=== PATIENT | male | born 1970 | race Caucasian/White ===

== ENCOUNTER 2017-01-01 18:20 | Inpatient (IN) | payer BC ==
[~2017-01-01] VITALS: Ht 190.5 cm; Wt 123.5 kg
--- NOTE | 2017-01-01 18:28 | ED.ADGEN ---
Past History Past Medical History: Hypertension, Other Past Surgical History: Other Smoking: Cigarettes Alcohol Use: Occasionally Adult General Chief Complaint Chief Complaint " I been having chest pain and discomfort.... the past week off and on... but more constant tonight.. I have high blood pressure and I do smoke.. but people start having KS in my family at age 40 to 50..." HPI HPI Patient is a 46 year old male who presents with above hx and complaints of chest discomfort. Patient states chest pain is central describe as an ache. Pt. has hx of HTN with poor control. No history of prior cardiac problems. Patient does smoke. Patient does drink daily. Patient denies any trauma. Patient denies any travel. Patient has had a recent cough and upper respiratory infection. Pt. follows with Dr. Griffin. Review of Systems Review of Systems Constitutional: Denies fever or chills [] Eyes: Denies change in visual acuity, redness, or eye pain [] HENT: Denies nasal congestion or sore throat [] Respiratory: Denies cough or shortness of breath [] Cardiovascular: No additional information not addressed in HPI [] GI: Denies abdominal pain, nausea, vomiting, bloody stools or diarrhea [] : Denies dysuria or hematuria [] Musculoskeletal: Denies back pain or joint pain [] Integument: Denies rash or skin lesions [] Neurologic: Denies headache, focal weakness or sensory changes [] Endocrine: Denies polyuria or polydipsia [] Family History Family History Neck disease developing at age 40 Current Medications Current Medications Current Medications Medications (Trade) Dose Ordered Sig/Adan Start Time Stop Time Status Last Admin Dose Admin Aspirin 325 mg 325 mg 1X ONCE 01/01/17 19:15 01/01/17 19:16 DC 01/01/17 19:49 325 MG Benzocaine (Hurricaine One) 1 spray 1X ONCE 01/01/17 20:45 01/01/17 20:46 DC Clonidine HCl (Catapres) 0.2 mg 1X ONCE 01/01/17 20:45 01/01/17 20:46 DC 01/01/17 20:30 0.1 MG Enoxaparin Sodium (Lovenox 100mg Syringe) 100 mg 1X ONCE 01/01/17 19:30 01/01/17 19:31 DC 01/01/17 19:48 100 MG Lactated Ringer's (Iv Lactated Ringers) 1,000 ml @ 1,000 mls/hr Q1H 01/01/17 19:00 01/01/17 19:48 1,000 MLS/HR Lorazepam (Ativan) 2 mg PRN 1X PRN 01/01/17 21:30 Nitroglycerin (Nitro-Bid Oint) 1 inch 1X ONCE 01/01/17 19:30 01/01/17 19:31 DC 01/01/17 19:50 1 INCH Ondansetron HCl (Zofran) 4 mg PRN Q4HRS PRN 01/01/17 21:30 01/02/17 21:29 Phenylephrine HCl (Telly-Synephrine 1% Nasal) 2 drop 1X ONCE 01/01/17 20:45 01/01/17 20:46 DC Allergies Allergies Allergies Coded Allergies Type Severity Reaction Last Updated Verified No Known Drug Allergies 01/01/17 No Physical Exam Physical Exam Constitutional: Mild to moderate distress, non-toxic appearance. [] HENT: Normocephalic, atraumatic, bilateral external ears normal, oropharynx moist, no oral exudates, nose normal. Poor dentition Eyes: PERRLA, EOMI, conjunctiva normal, no discharge. [] Neck: Normal range of motion, no tenderness, supple, no stridor. Neck size more than 17 inches circumference Cardiovascular:Heart rate regular rhythm, no murmur, PMI to the left Lungs & Thorax: Bilateral breath sounds equal at apexes with scattered wheezing on auscultation [] Abdomen: Bowel sounds normal, soft, no tenderness, no masses, no pulsatile masses. Obese Skin: Warm, dry, no erythema, no rash. [] Back: No tenderness, no CVA tenderness. [] Extremities: No tenderness, no cyanosis, no clubbing, ROM intact, no edema. [] No cording noted. Neurologic: Alert and oriented X 3, normal motor function, normal sensory function, no focal deficits noted. Psychologic: Affect anxious, judgement normal, mood normal. [] Current Patient Data Vital Signs Vital Signs Date Time Temp Pulse Resp B/P Pulse Ox O2 Delivery O2 Flow Rate FiO2 01/01/17 20:30 77 169/73 01/01/17 18:20 99.0 18 93 Room Air Lab Results Laboratory Tests Test 01/01/17 18:10 01/01/17 18:40 White Blood Count 9.1x10^3/uL (4.0-11.0) Red Blood Count 5.48x10^6/uL (4.30-5.70) Hemoglobin 17.0g/dL (13.0-17.5) Hematocrit 49.2% (39.0-53.0) Mean Corpuscular Volume 90fL (79-100) Mean Corpuscular Hemoglobin 31pg (25-35) Mean Corpuscular Hemoglobin Concent 35g/dL (31-37) Red Cell Distribution Width 13.4% (11.5-14.5) Platelet Count 167x10^3/uL (140-400) Neutrophils (%) (Auto) 67% (31-73) Lymphocytes (%) (Auto) 24% (24-48) Monocytes (%) (Auto) 8% (0-9) Eosinophils (%) (Auto) 1% (0-3) Basophils (%) (Auto) 1% (0-3) Neutrophils # (Auto) 6.1x10^3uL (1.8-7.7) Lymphocytes # (Auto) 2.2x10^3/uL (1.0-4.8) Monocytes # (Auto) 0.7x10^3/uL (0.0-1.1) Eosinophils # (Auto) 0.0x10^3/uL (0.0-0.7) Basophils # (Auto) 0.1x10^3/uL (0.0-0.2) Prothrombin Time 10.1SEC (9.4-11.4) Prothrombin Time INR 1.0 (0.9-1.1) PTT 26SEC (23-33) D-Dimer (Nilsa) 0.45mg/L (0.00-0.50) Urine Collection Type Unknown Urine Color Straw Urine Clarity Clear Urine pH 6.5 Urine Specific [place] 1.010 Urine Protein Neg (NEG-TRACE) Urine Glucose (UA) Negmg/dL (NEG) Urine Ketones (Stick) Negmg/dL (NEG) Urine Blood Neg (NEG) Urine Nitrite Neg (NEG) Urine Bilirubin Neg (NEG) Urine Urobilinogen Dipstick 0.2mg/dL (0.2 mg/dL) Urine Leukocyte Esterase Neg (NEG) Urine RBC 0/HPF (0-2) Urine WBC 0/HPF (0-4) Urine Squamous Epithelial Cells None/LPF Urine Bacteria 0/HPF (0-FEW) Sodium Level 139mmol/L (136-145) Potassium Level 3.6mmol/L (3.5-5.1) Chloride Level 99mmol/L (98-107) Carbon Dioxide Level 32mmol/L (21-32) Anion Gap 8 (6-14) Blood Urea Nitrogen 10mg/dL (8-26) Creatinine 1.0mg/dL (0.7-1.3) Estimated GFR (Cockcroft-Gault) 80.4 Glucose Level 119mg/dL (70-99) H Calcium Level 9.4mg/dL (8.5-10.1) Magnesium Level 2.1mg/dL (1.8-2.4) Total Bilirubin 0.7mg/dL (0.2-1.0) Direct Bilirubin 0.2mg/dL (0.0-0.2) Aspartate Amino Transferase (AST) 27U/L (15-37) Alanine Aminotransferase (ALT) 67U/L (16-63) H Alkaline Phosphatase 90U/L (46-116) Creatine Kinase 222U/L (39-308) Creatine Kinase MB (Mass) 1.6ng/mL (0.0-3.6) Creatine Kinase MB Relative Index 0.7% (0-4) Troponin I Quantitative < 0.017ng/mL (0-0.055) GV-Lzg-A-Type Natriuretic Peptide 181pg/mL (0-124) H Total Protein 8.1g/dL (6.4-8.2) Albumin 4.4g/dL (3.4-5.0) Lipase 157U/L (73-393) Urine Opiates Screen Neg (NEG) Urine Methadone Screen Neg (NEG) Urine Barbiturates Neg (NEG) Urine Phencyclidine Screen Neg (NEG) Urine Amphetamine/Methamphetamine Neg (NEG) Urine Benzodiazepines Screen Neg (NEG) Urine Cocaine Screen Neg (NEG) Urine Cannabinoids Screen Neg (NEG) Urine Ethyl Alcohol Neg (NEG) Ethyl Alcohol Level < 10mg/dL (0-10) EKG EKG I interpretation EKG shows a sinus rhythm at 69 bpm. There is some bimodal P- wave's on the left leads. Left axis deviation. Some nonspecific anterior lateral changes. But no findings acute STEMI with contralateral changes at this time. [] Radiology/Procedures Radiology/Procedures I interpretation of chest x-ray shows borderline cardiomegaly. Some chronic findings consistent with mild COPD. [] Course & Med Decision Making Course & Med Decision Making Pertinent Labs and Imaging studies reviewed. (See chart for details) Patient did develop nosebleed in the emergency room after blowing his nose. Will hold further Lovenox at this time. Discussed presentation, testing and treatment with . Will admit for further evaluation and cardiology consult Dr. Lopes [] Final Impression Final Impression 1. Chest pain 2. Hypertension -accelerated hypertension 3. Tobacco use 4. Daily alcohol use [] Problems: Dragon Disclaimer Dragon Disclaimer This electronic medical record was generated, in whole or in part, using a voice recognition dictation system. ESTUARDO GARCIA MD Jan 01, 2017 18:28
[2017-01-01] MEDS ORDERED: ASPIRIN 325 MG TABLET PO ONE (19:15)
[2017-01-01 19:23] LABS: BASO # 0.1 x10^3/uL (0.0-0.2); BASO % 1 % (0-3); EOS % 1 % (0-3); HEMATOCRIT 49.2 % (39.0-53.0); LYMPH # 2.2 x10^3/uL (1.0-4.8); LYMPH % 24 % (24-48); MEAN CORPUSCULAR HEMOGLOBIN 31 pg (25-35); MEAN CORPUSCULAR HGB CONC 35 g/dL (31-37); MEAN CORPUSCULAR VOLUME 90 fL (79-100); MONO # 0.7 x10^3/uL (0.0-1.1); MONO % 8 % (0-9); NEUT # 6.1 x10^3uL (1.8-7.7); NEUT % 67 % (31-73); PLATELET COUNT 167 x10^3/uL (140-400); RED BLOOD COUNT 5.48 x10^6/uL (4.30-5.70); RED CELL DISTRIBUTION WIDTH 13.4 % (11.5-14.5); WHITE BLOOD COUNT 9.1 x10^3/uL (4.0-11.0)
[2017-01-01 19:30] LABS: BILIRUBIN,URINE NEG (NEG); CLARITY,URINE CLEAR; COLOR,URINE STRAW; GLUCOSE,URINE NEG (NEG)
[2017-01-01] MEDS ORDERED: ENOXAPARIN ** NOTE DOSE ** SYRINGE SQ ONE (19:30)
[2017-01-01] MEDS ORDERED: NITROGLYCERIN OINT 1 GM PACKET. TP ONE (19:30)
[2017-01-01 19:31] LABS: BACTERIA,URINE 0 /HPF (0-FEW); NITRITE,URINE NEG (NEG); RBC,URINE 0 /HPF (0-2); UROBILINOGEN,URINE 0.2 mg/dL (0.2 mg/dL); WBC,URINE 0 /HPF (0-4)
[2017-01-01 19:38] LABS: AMPHETAMINE/METHAMPHETAMINE NEG (NEG); BARBITURATES NEG (NEG); BENZODIAZEPINES NEG (NEG); CANNABINOIDS NEG (NEG); COCAINE NEG (NEG); METHADONE NEG (NEG); OPIATES NEG (NEG); PHENCYCLIDINE NEG (NEG)
[2017-01-01 19:47] LABS: ALBUMIN 4.4 g/dL (3.4-5.0); CALCIUM 9.4 mg/dL (8.5-10.1); DIRECT BILIRUBIN 0.2 mg/dL (0.0-0.2); GFR 80.4; MAGNESIUM 2.1 mg/dL (1.8-2.4); POTASSIUM 3.6 mmol/L (3.5-5.1); TOTAL BILIRUBIN 0.7 mg/dL (0.2-1.0); TOTAL PROTEIN 8.1 g/dL (6.4-8.2)
[2017-01-01] MEDS: IV RINGERS SOLUTION,LACTATED 1,000 ML IV SCH (19:48)
[2017-01-01] MEDS ORDERED: BENZOCAINE ONE 20% MUCOSAL SPRAY. MM (20:45)
[2017-01-01] MEDS ORDERED: PHENYLEPHRINE 1% NASAL DROP 30ML BOTTLE. NS ONE (20:45)
[2017-01-01] MEDS ORDERED: ONDANSETRON PF 4 MG/2 ML VIAL. IV ONE ×2 (20:45)
[2017-01-01] MEDS ORDERED: CLONIDINE HCL 0.1 MG TABLET PO ONE (20:45)
[2017-01-01] MEDS ORDERED: ONDANSETRON PF 4 MG/2 ML VIAL. IV PRN (21:30)
[2017-01-01] MEDS ORDERED: LORAZEPAM 2 MG/ML VIAL IV PRN (21:30)
[2017-01-01] MEDS ORDERED: MORPHINE SULFATE 10 MG/ML SYRINGE. SQ ONE ×2 (21:45→22:15)
[2017-01-01] MEDS: MVI, ADULT NO.4 WITH VIT K 10 ML, FOLIC ACID 1 MG, THIAMINE 100 MG in IV DEXTROSE 5%-LA... IV SCH ×4 (22:00)
--- NOTE | 2017-01-01 23:30 | NUR ---
At 2315, Pt admitted via EMS from ER for CP. Pt presents A&OX3, pleasant and cooperative. Pt states chest pain has improved but states it's still there "a little bit" rates 2/10, pt states he doesn't want anything for the pain. A full complete assessment and history completed at this time. Pt oriented to unit, nurse, call light and plan of care. V/u stated. Call light in reach. Pt hungry, given a sandwich at this time. Pt denies any questions or complaints. Will monitor pt closely. Pt requesting something to help him relax and sleep, will address.
[2017-01-01 23:36] VITALS: BP 177/82
[2017-01-01] MEDS: LORAZEPAM 1 MG TABLET. PO SCH (23:45)
[2017-01-02] VITALS (7 sets, daily range): BP systolic 113–178; BP diastolic 51–81
--- NOTE | 2017-01-02 02:21 | ACF ---
Admission Criteria Forms GENERAL ADMISSION CRITERIA (Place 'X' for any and all applicable criteria): Admission is indicated for ANY ONE of the following: [ ]I. Hemodynamic instability as indicated by ANY ONE of the following(1)(2) (3)(4)(5): [ ]a) Vital sign abnormality not readily corrected by appropriate treatment within 12 to 24 hours indicated by ANY ONE of the following: [ ]i) Hypotension [ ]ii) Symptomatic Tachycardia unresponsive to treatment (eg , analgesia, fluids, sedation as indicated) [ ]iii) Orthostatic vital sign changes unresponsive to treatment (eg, fluids) [ ]b) Vital sign abnormality that is severe indicated by ANY ONE of the following: [ ]i) Inadequate perfusion indicated by ANY ONE of the following: [ ]1) Lactic acidosis (greater than 2 mmol/L) [ ]2) New abnormal capillary refill (greater than 3 seconds) [ ]3) Other metabolic acidosis (arterial pH less than 7.35) not otherwise explained [ ]4) Reduced urine output [ ]5) Altered mental status [ ]6) Myocardial Ischemia [ ]v) Mean arterial pressure[A] less than 60 mm Hg [ ]vi) Mean arterial pressure[A] less than 70 mm Hg after 30 minutes of appropriate treatment (eg, fluid resuscitation) [ ]vii) IV inotropic or vasopressor medication required to maintain adequate blood pressure or perfusion [ ]viii) Sustained heart rate greater than 120 beats per minute in adult or child 6 years or older[B]] [ ]II. Hypertension requiring inpatient treatment as indicated by ANY ONE of the following(6)(7)(8): [ ]a) SBP greater than 220 mm Hg or DBP greater than 120 mm Hg despite treatment [ ]b) SBP greater than 140 mm Hg or DBP greater than 100 mm Hg with evidence of acute end organ damage as indicated by ANY ONE of the following: [ ]i) Encephalopathy [ ]ii) Acute renal failure as indicated by new onset of ANY ONE of the following(9)(10)(11)(12)(13): [ ]1) A 3-fold rise in serum creatinine from baseline [ ]2) Serum creatinine greater than 4 mg/dL ( 354 micromoles/L) with acute rise greater than 0.5 mg/dL (44.2 micromoles/L) [ ]3) Reduction of more than 75% in estimated glomerular filtration rate from baseline [ ]4) Estimated glomerular filtration rate less than 35 mL/min/1.73m2 (0.59 mL/sec/1.73m2) in child up to 18 years of age [ ]5) Cessation of urine output indicated by ALL of the following: [ ]A. Adequate volume status [ ]B. Inadequate urine output as indicated by ANY ONE of the following: [ ]a. Urine output less than 0.3 mL/kg/hr for 24 hours [ ]b. Anuria (urine output less than 0.1 mL/kg/hr) for 12 hours [ ]iii) Aortic dissection [ ]iv) Myocardial ischemia [ ]v) Left ventricular heart failure [ ]vi) Retinal hemorrhage [ ]vii) Other significant finding [ ]c) Hypertension in child requiring inpatient treatment as indicated by ALL of the following(14)(15)(16): [ ]i) Outpatient treatment not effective, not available, or not appropriate [ ]ii) SBP or DBP greater than 95th percentile for age [ ]iii) Evidence of acute end organ damage as indicated by ANY ONE of the following: [ ]1) Altered mental status [ ]2) Acute renal failure as indicated by new onset of ANY ONE of the following(9)(10)(11)(12)(13): [ ]A. A 3-fold rise in serum creatinine from baseline [ ]B. Serum creatinine greater than 4 mg/dL (354 micromoles/L) with acute rise greater than 0.5 mg/dL (44.2 micromoles/L) [ ]C. Reduction of more than 75% in estimated glomerular filtration rate from baseline [ ]D. Estimated glomerular filtration rate less than 35 mL/min/1.73m2 (0.59 mL/sec/1.73m2)in child up to 18 years of age [ ]E. Cessation of urine output indicated by ALL of the following: [ ]a. Adequate volume status [ ]b. Inadequate urine output as indicated by ANY ONE of the following: [ ]1) Urine output less than 0.3 mL/kg/hr for 24 hours [ ]2) Anuria (urine output less than 0.1 mL/kg/hr) for 12 hours [ ]3) Severe headache [ ]4) Visual disturbance [ ]5) Retinal hemorrhage [ ]6) Other significant finding [ ]III. Acute cardiac or peripheral ischemia as indicated by ANY ONE of the following: [ ]a) Acute coronary syndrome(17)(18) [ ]b) Acute peripheral ischemia (eg, pulseless, cool, mottled, or cyanotic extremity)(19) [ ]IV. Cardiac arrhythmias or findings of immediate concern indicated by ANY ONE of the following(20)(21): [ ]a) Heart rhythms that are inherently dangerous or unstable indicated by ANY ONE of the following(22)(23)(24): [ ]i) Resuscitated ventricular fibrillation or cardiac arrest [ ]ii) Ventricular escape rhythm [ ]iii) Sustained ventricular tachycardia (30 seconds or more of ventricular rhythm at greater than 100 beats per minute) [ ]iv) Nonsustained ventricular tachycardia and ANY ONE of the following: [ ]1) Suspected cardiac ischemia as cause or consequence of ventricular tachycardia [ ]2) In setting of acute myocarditis [ ]b) Unstable cardiac conduction defects indicated by ANY ONE of the following(24)(25)(26): [ ]i) Type II second-degree atrioventricular block [ ]ii) Third-degree atrioventricular block [ ]iii) New-onset left bundle branch block with suspected myocardial ischemia [ ]c) Any heart rhythm and ANY ONE of the following(22)(23)(27)(28)( 29): [ ] i) Continuous long-term ECG monitoring needed (eg, initiation of drug requiring monitoring for more than 24 hours) [ ] ii) Patient has automatic implanted cardioverter defibrillator that is repeatedly firing, malfunctioning, or in need of immediate adjustment of settings beyond the scope of ambulatory or observation care. [ ]d) Heart rhythms of concern due to ANY ONE of the following: [ ]i) Hypotension [ ]ii) Respiratory distress [ ]iii) Association with other significant symptoms (eg, bradycardia with syncope or ongoing dizziness, supraventricular tachycardia with chest pain) (27)(28) (30) [ ] V. Severe heart failure as indicated by ANY ONE of the following ( 31)(32): [ ]a) Respiratory distress [ ]b) Hypotension [ ]c) Anasarca (refractory to outpatient therapy) [ ]d) Cardiac arrhythmias of immediate concern [ ]e) Myocardial ischemia [ ]. Respiratory abnormalities, including ANY ONE of the following(33)(34) (35)(36): [ ]a) Respiratory rate greater than 30 breaths per minute unresponsive to treatment [A] [ ]b) New saturation of arterial oxygen less than 90% [ ]c) New partial pressure of carbon dioxide greater than 44 mm Hg ( 5.9 kPa) [ ]d) Supplemental oxygen or respiratory treatments needed that are new or not performable at other levels of care [ ]e) New-onset cyanosis [ ]f) Inability to protect airway [ ]g) Chronic lung disease with severe deterioration (not responsive to emergency and observation care treatment as appropriate) as indicated by ANY ONE of the following(34)(36 ): [ ]i) SaO2 5% below baseline in patient with chronic hypoxemia [ ]ii) New requirement for supplemental oxygen to keep SaO2 at baseline or acceptable level [ ]iii) Required supplemental oxygen performable only in acute inpatient setting [ ]iv) Severe airflow or ventilation abnormalities [ ]v) Previously mobile patient unable to walk between rooms [ ]vi Inability to eat or sleep due to dyspnea [ ]vii) Rapid rate of exacerbation onset [ ]viii) Altered mental status ]VII. Severe airflow or ventilation abnormalities (not responsive to emergency and observation care treatment as appropriate) as indicated by ANY ONE of the following(33)(34)(35)(37): [ ]a) PCO2 greater than 42 mm Hg (5.6 kPa) and pH less than 7.35 (new ) [ ]b) Documented PCO2 increased more than 5 mm Hg (0.7 kPa) from disease baseline [ ]c) Airflow measurements [B] less than 60% of previous best or predicted (eg, peak expiratory flow rate less than 300 L/minute) despite intensive emergent treatment [C] [ ]d) Required respiratory treatments that are performable only in acute inpatient setting [ ]VIII. Impending or actual respiratory arrest ( Also use Respiratory Failure GRG for severe respiratory disease and long-term mechanical ventilation patients) [ ]IX. Neurologic abnormalities, including ANY ONE of the following: [ ]a) New findings that suggest ANY ONE of the following: [ ]i) MEDICAL OFFICE ADMINISTRATOR infection(38) [ ]ii) Cerebral bleeding, ischemia, or vasospasm(39)(40) [ ]iii) Increased intracranial pressure, hydrocephalus, or cerebral edema(41)(42)(43) [ ]iv) Spinal cord injury(44) [ ]b) Uncontrolled seizures(45) [ ]c) New-onset coma (eg, Irwin coma scale score less than 9) or unexplained abnormal mental status (eg, Sherrill coma scale score less than 14) [D](41)(46)(47) [ ]X. New-onset severe neurologic findings requiring inpatient care; examples include(42)(48)(49): [ ]a) Papilledema [ ]b) Cerebral edema [ ]c) Mass effect on CT scan [ ]XI. Suspected acute intra-abdominal process with peritoneal signs, abdominal mass, or similar findings (50)(51)(52) [ ]XII. Severe physiologic disorder remaining after emergency or observation level care (as appropriate) as indicated by ANY ONE of the following (53): [ ]a) Significant dehydration [ ]b) Diabetic ketoacidosis [ ]c) Hyperglycemic hyperosmolar state (eg, osmolality greater than 320 mOsm/kg (mmol/kg) [ ]d) Hypoglycemia [ ]e) Other (new) acid-base disorder with pH less than 7.35 or greater than 7.5(54) [ ]f) Thyroid storm (55) [ ]g) Myxedema coma (55) [ ]XIII. Abdominal abnormalities with ANY ONE of the following(56)(57): [ ]a) Absent bowel sounds with complete ileus [ ]b) Signs of intestinal obstruction or peritonitis [E] [ ]c) Nausea and vomiting that cannot be controlled with outpatient or observation care [ ]XIV. Acute renal failure as indicated by new onset of ANY ONE of the following(9)(10)(11)(12)(13): [ ]a) A 3-fold rise in serum creatinine from baseline [ ]b) Serum creatinine greater than 4 mg/dL (354 micromoles/L) with acute rise greater than 0.5 mg/dL (44.2 micromoles/L) [ ]c) Reduction of more than 75% in estimated glomerular filtration rate from baseline [ ]d) Estimated glomerular filtration rate less than 35 mL/min/ 1.73m2 (0.59 mL/sec/1.73m2) in child up to 18 years of age [ ]e) Cessation of urine output indicated by ALL of the following: [ ]i) Adequate volume status [ ]ii) Inadequate urine output as indicated by ANY ONE of the following: [ ]1) Urine output less than 0.3 mL/kg/hr for 24 hours [ ]2) Anuria (urine output less than 0.1 mL/kg/hr) for 12 hours [ ]XV. Significant uremic complications as indicated by ANY ONE of the following(58)(59)(60): [ ]a) Outpatient therapy is ineffective or not feasible for ANY ONE of the following: [ ]i) Severe heart failure [ ]ii) Severehypertension [ ]iii) Pleural effusion [ ]iv) Pericarditis or pericardial effusion [ ]b) Cardiac arrhythmias of immediate concern [ ]c) Intractable nausea or vomiting [ ]d) Recurrent seizures [ ]e) Encephalopathy [ ]f) Bleeding abnormalities (eg, platelet dysfunction) with active (eg, gastrointestinal) bleeding [ ]g) Dialysis indicated before long-term access or ambulatory arrangements can be made [ ]h) Significant metabolic or electrolyte abnormalities (eg, severe acidosis or hyperkalemia) [ ]XVI. High fever or other high-risk infection situation as indicated by ANY ONE of the following(61)(62)(63)(64): [ ]a) Outpatient and observation care antimicrobial treatment unavailable, not effective, or not appropriate [ ]b) Documented bacteremia [ ]c) Temperature greater than 40.5 degrees C (104.9 degrees F) ( oral) [ ]d) Temperature greater than 39.5 degrees C (103.1 degrees F) ( oral) or less than 36 degrees C (96.8 degrees F) (rectal) that does not respond to e treatment and observation care [ ] XVII. Temperature less than 95 degrees F (35 degrees C)(rectal)(65) [ ] XVIII. Severe nutritional abnormalities as indicated by ALL of the following (66)(67): [ ]a) Inability to tolerate or establish sufficient oral or other enteral nutrition in outpatient setting [ ]b) Parenteral nutrition regimen need that must be implemented on inpatient basis [ ] XIX. Severe electrolyte abnormalities indicated by ALL of the following(68) (69)(70): [ ]a) Electrolytes and associated findings are not as expected for patient baseline or acceptable treatment effects. [ ]b) Severe abnormalities indicated by ANY ONE of the following: [ ]i) Sodium less than 130 mEq/L (mmol/L) (new) [ ]ii)Sodium less than 135 mEq/L (mmol/L) with ANY ONE of the following: [ ]1) Uncorrectable (to near normal or chronic baseline) after trial of outpatient and emergency treatment [ ]2) Altered mental status [ ]3) Seizures [ ]4) Severe medical etiology requiring inpatient management (eg, heart failure, hypovolemia) [ ]iii) Sodium greater than 155 mEq/L (mmol/L) [ ]iv) Sodium greater than 150 mEq/L (mmol/L) with ANY ONE of the following: [ ]1) Uncorrectable (to near normal or chronic baseline) with outpatient and emergency treatment [ ]2) Altered mental status [ ]3) Seizures [ ]4) Severe medical etiology (eg, hypovolemia, diabetes insipidus) [ ]v) Potassium less than 2.5 mEq/L (mmol/L) despite outpatient and emergency treatment [ ]vi) Potassium less than 3 mEq/L (mmol/L) with ANY ONE of the following: [ ]1) Weakness [ ]2) Cardiac abnormality (eg, arrhythmia, conduction disturbance) [ ]3) Cardiac ischemia [ ]4) Ileus [ ]5) Ongoing medical cause requiring inpatient management (eg, acute renal wasting or SIADH) [ ]6) Other severe symptoms [ ]vii) Potassium greater than 6.5 mEq/L (mmol/L) [ ]viii) Potassium greater than 5 mEq/L (mmol/L) with ANY ONE of the following: [ ]1) Uncorrectable (to near normal or chronic baseline) with outpatient and emergency treatment [ ]2) Severe ECG findings [F] [ ]3) Acute worsening of renal failure (creatinine greater than 2.5 mg/dL (221 micromoles/L) or significant elevation for age and size) [ ]4) Severe weakness [ ]5) Severe medical etiology (eg, hemolysis, infection, drug overdose) [ ]ix) Calcium less than 7 mg/dL (1.75 mmol/L) despite outpatient and emergency treatment (72) [ ]x) Calcium less than 8 mg/dL (2 mmol/L) with significant symptoms or findings; examples include(72): [ ]1) Altered mental status [ ]2) Muscle spasms [ ]3) Seizures [ ]4) Breathing difficulty [ ]5) Cardiac abnormality (eg, arrhythmia or conduction disturbance) [ ]xi) Calcium greater than 14 mg/dL (3.5 mmol/L)(72) [ ]xii) Calcium greater than 12 mg/dL (3 mmol/L) with ANY ONE of the following(72): [ ]1) Uncorrectable (to near normal or chronic baseline) with outpatient and emergency treatment [ ]2) Significant dehydration or hypovolemia as indicated by ALL of the following(70)(73)(74): [ ]A. Not resolved with initial treatments [ ]B. Clinically significant dehydration as indicated by ANY ONE of the following: [ ]a. Vomiting refractory to outpatient treatment (ie, precluding oral rehydration) [ ]b. Inability to drink [ ]c. Hypernatremia or other electrolyte abnormality unable to be corrected with outpatient and emergency treatment [ ]d. Failure to remain hydrated with outpatient therapy [ ]e. Reduced urine output [ ]f. Hypotension [ ]g. Serious cause for dehydration requiring acute hospitalization (eg, bowel obstruction, increased intracranial pressure, infectious cause) [ ]h. Child with ANY ONE of the following(75): [ ]1) Severe abdominal tenderness [ ]2) Adequate care not available at home [ ]3) Severe dehydration ( greater than 9% loss of body weight) [ ]4) Significant symptoms or findings; examples include: [ ]A. Altered mental status [ ]B. Cardiac abnormality (eg, arrhythmia, conduction disturbance) [ ]C. Malignant etiology requiring inpatient treatment [ ]xiii) Phosphorus less than 1 mg/dL (0.32 mmol/L) [ ]xiv) Phosphorus less than 1.5 mg/dL (0.48 mmol/L) with ANY ONE of the following: [ ]1) Patient unresponsive to outpatient and emergency treatment [ ]2) Significant symptoms or findings; examples include: [ ]A. Weakness [ ]B. Altered mental status [ ]C. Breathing difficulty [ ]D. Seizures [ ]E. Rhabdomyolysis [ ]xv) Phosphorus greater than 10 mg/dL (3.2 mmol/L) [ ]xvi) Phosphorus greater than 4.5 mg/dL (1.45 mmol/L) (new) with ANY ONE of the following: [ ]1) Severe medical etiology (eg, crush injury, acute renal failure) [ ]2) Associated hypocalcemia with significant findings; examples include: [ ]A. Neurologic symptoms [ ]B. Altered mental status [ ]C. Muscle spasms [ ]D. Seizures [ ]E. Breathing difficulty [ ]F. Cardiac abnormality (eg, arrhythmia, conduction disturbance) [ ]xvii) Magnesium less than 1 mg/dL (0.41 mmol/L) [ ]xviii) Magnesium less than 1.5 mg/dL (0.62 mmol/L) with ANY ONE of the following: [ ]1) Patient unresponsive to outpatient and emergency treatment [ ]2) Associated hypocalcemia with significant findings; examples include: [ ]A. Altered mental status [ ]B. Muscle spasms [ ]C. Seizures [ ]D. Breathing difficulty [ ]E. Cardiac abnormality (eg, arrhythmia , conduction disturbance) [ ]3) Associated hypokalemia (potassium less than 3 mEq/L (mmol/L)) with risk of arrhythmia [ ]xix) Magnesium greater than 4 mEq/L (2 mmol/L) [ ]xx) Magnesium greater than 2.5 mEq/L (1.25 mmol/L) with significant symptoms or findings; examples include: [ ]1) Weakness [ ]2) Altered mental status [ ]3) Cardiac abnormality (eg, arrhythmia, conduction disturbance) [ ]4) Breathing difficulty [ ]5) Severe medical etiology (eg, renal failure, hypovolemia) [ ]xxi) Uric acid greater than 20 mg/dL (1190 micromoles/L)(76) [ ]xxii) Uric acid greater than 8 mg/dL (476 micromoles/L) with significant symptoms or findings of tumor lysis syndrome; examples include(76): [ ]1) Creatinine greater than 1.5 times upper limit of normal [ ]2) Cardiac abnormality (eg, arrhythmia, conduction disturbance) [ ]3) Seizure [ ]XX. Acute blood loss causing significant abnormality as indicated by ANY ONE of the following(77)(78): [ ]a) Hemoglobin less than 10 g/dL (100 g/L) (not baseline) [ ]b) Hematocrit less than 30% (0.30) (not baseline) [ ]c) Repeat hematocrit decreased more than 2% (0.02) [ ]d) Uncontrolled bleeding [ ]XXI. Severe anemia indicated by ANY ONE of the following(78)(79): [ ]a) Altered mental status [ ]b) Chest pain [ ]c) Exertional dyspnea [ ]d) Syncope [ ]e) Other findings suggesting inadequate perfusion [ ]f) Treatment with transfusion or volume replacement is ineffective at resolving ANY ONE of the following [G]: [ ]i) Tachycardia for age [ ]ii) Orthostatic vital sign changes as indicated by ANY ONE of the following(80): [ ]1) Fall in SBP of 20 mm Hg or more 1 to 3 minutes after patient sits or stands from recumbent position [ ]2) Fall in DBP of 10 mm Hg or more 1 to 3 minutes after patient sits or stands from recumbent position [ ]XXII. High-risk low platelet count as indicated by ANY ONE of the following( 81)(82): [ ]a) Severe or life-threatening bleeding (eg, intracranial, major gastrointestinal, or extensive mucosal bleeding), with any reduced platelet count [ ]b) Platelet count less than 20,000/mm3 (20 x109/L) with any active bleeding [ ]c) Platelet count less than 10,000/mm3 (10 x109/L) with minor purpura or petechiae [ ]d) Platelet count less than 5000/mm3 (5 x109/L) [ ]e) Low platelet count with hemolytic anemia [ ]XXIII. Disseminated intravascular coagulation(77)(83) [ ]XXIV. Severe adverse drug or systemic toxin reaction requiring inpatient treatment; examples include(84)(85): [ ]a) Serotonin syndrome(86) [ ]b) Neuroleptic malignant syndrome(86) [ ]c) Cholinergic syndrome with severe symptoms (eg, bronchorrhea, weakness, mental status changes, seizures) [ ]d) Sympathetic syndrome with severe symptoms (eg, seizures, mental status changes, cardiac dysrhythmias) [ ]e) Anticholinergic syndrome [ ]XXV. Severe pain requiring acute inpatient management as indicated by ALL of the following (87)(88)(89): [ ]a) Continuous or frequent (eg, every 2 to 4 hours) parenteral analgesics required [H] [ ]b) Rapid improvement expected from treatment or acute intervention (eg, surgery, anesthesia procedure) [ ]XXVI.Severe behavioral health issues judged unmanageable at a lower level of care (eg, residential) in a patient who is ANY ONE of the following(91) [ ]a) Acutely suicidal [ ]b) A danger to self (eg, self-mutilating or suicidal behavior) [ ]c) A danger to others (eg, assaultive or homicidal behavior) [ ]d) Incapacitated because of grave disability (eg, inability to provide for self at lower level of care) (92) [X]XXVII. Inpatient monitoring needed; examples include(1)(3)(87)(93)(94)(95)(96 ): [X]a) Vital signs, neurologic signs, or vascular checks more frequently than every 4 hours [ ]b) Cardiac or respiratory monitoring beyond the scope (eg, over 24 hours) of observation care [ ]c) Pulmonary artery catheter monitoring [ ]d) Suspected compartment syndrome(97) (98) [ ]e) Cerebral bleeding, hydrocephalus, or vasospasm monitoring [ ]f) Increased intracranial pressure or cerebral edema monitoring [ ]g) monitoring [ ]XXVIII. Treatment requiring inpatient care; examples include: [ ]a) IV fluid to replace significant ongoing losses (greater than 3 L/m2 per day)(53) [ ]b) High concentration oxygen (greater than 40%)(33)(99)(100) [ ]c) Frequent respiratory therapy (more frequently than every 4 hours) to maintain airflow rates greater than 60% of baseline(33)(99)(100) [ ]d) Epidural analgesia(87) [ ]e) IV anticoagulation, vasoactive, or antiarrhythmic medication(19 )(23) [ ]f) Acute thrombolytics (generally require 24 hours of observation )(101)(102) [ ]XXIX. Emergency procedures needed; examples include: [ ]a) Emergency inpatient surgery [ ]b) Temporary pacemaker placement(103) [ ]c) Chest tube placement with active evacuation (eg, suction, drainage)(104) [ ]d) Emergent cardioversion(105) [ ]e) Emergent cardiac or vascular procedures (eg, cardiac catheterization, angioplasty) (17)(18) [ ]f) Emergent dialysis access placement and institution(10)(106) [ ]g) Emergent pericardiocentesis(107) [ ]h) Emergent plasmapheresis or leukapheresis(83) [ ]i) Emergent tracheostomy The original [employer] content created by [employer] has been revised. The portions of the content which have been revised are identified through the use of italic text or in bold, and [facility] has neither reviewed nor approved the modified material. All other unmodified content is copyright [employer]. Please see references footnoted in the original [employer] edition 2016 Admission Criteria Met?: Yes JESUSITA REDDING Jan 02, 2017 02:21
[2017-01-02 06:21] LABS: BASO # 0.1 x10^3/uL (0.0-0.2); BASO % 1 % (0-3); EOS # 0.1 x10^3/uL (0.0-0.7); EOS % 2 % (0-3); HEMOGLOBIN 14.9 g/dL (13.0-17.5); LYMPH # 2.8 x10^3/uL (1.0-4.8); LYMPH % 38 % (24-48); MEAN CORPUSCULAR HEMOGLOBIN 31 pg (25-35); MEAN CORPUSCULAR HGB CONC 34 g/dL (31-37); MEAN CORPUSCULAR VOLUME 91 fL (79-100); MONO # 0.7 x10^3/uL (0.0-1.1); MONO % 10 % (0-9); NEUT # 3.6 x10^3uL (1.8-7.7); NEUT % 50 % (31-73); PLATELET COUNT 155 x10^3/uL (140-400); RED BLOOD COUNT 4.84 x10^6/uL (4.30-5.70); RED CELL DISTRIBUTION WIDTH 13.7 % (11.5-14.5); WHITE BLOOD COUNT 7.3 x10^3/uL (4.0-11.0)
[2017-01-02 06:35] LABS: ALBUMIN 3.5 g/dL (3.4-5.0); ALBUMIN/GLOBULIN RATIO 1.1 (1.0-1.7); CALCIUM 8.5 mg/dL (8.5-10.1); CREATININE 1.1 mg/dL (0.7-1.3); GFR 72.1; POTASSIUM 3.8 mmol/L (3.5-5.1); TOTAL BILIRUBIN 0.3 mg/dL (0.2-1.0); TOTAL PROTEIN 6.8 g/dL (6.4-8.2)
[2017-01-02] MEDS ORDERED: OLME1TAB35 PO (07:10)
[2017-01-02] MEDS: IV RINGERS SOLUTION,LACTATED 1,000 ML IV SCH (07:28)
[2017-01-02] MEDS: MVI, ADULT NO.4 WITH VIT K 10 ML, FOLIC ACID 1 MG, THIAMINE 100 MG in IV DEXTROSE 5%-LA... IV SCH ×4 (07:29)
[2017-01-02] MEDS: LORAZEPAM 1 MG TABLET. PO SCH ×4 (07:51→20:57)
--- NOTE | 2017-01-02 08:18 | RAD ---
Indication: Chest pain tonight. Technique: Two-view chest radiograph was obtained. Frontal projection was repeated. No comparison is available. Findings: The lungs are clear. The cardiopulmonary silhouette is within normal limits. There is no pleural effusion. There are minimal degenerative changes in the spine. Impression: No acute thoracic findings.
--- NOTE | 2017-01-02 08:25 | NUR ---
PT is verbalized understanding of poc. Pt is to have a stress test today. Wil ALTAMIRANO
[2017-01-02] MEDS ORDERED: FLU VACC QUAD 2016-17 (36MOS+)/PF 0.5 ML SYRINGE. VAX IM ONE (09:00)
[2017-01-02] MEDS ORDERED: ASPIRIN 81 MG TAB.CHEW PO SCH (09:00)
[2017-01-02] MEDS ORDERED: Influenza vaccine per PROTOCOL. MC PRN (09:00)
--- NOTE | 2017-01-02 09:41 | PDOC2 ---
NILE STRICKLAND SPEECH PATHOLOGIST ASSISTANT 01/02/17 0941: CONSULT Date of Admission DATE: 01/02/17 TIME: 09:25 Reason for Consult: chest pain Problem List Problems Medical Problems: (1) Chest pain Status: Acute History of Present Illness Mr Gates is a 46 year old male with history of hypertension, on multiple antihypertensives, hyperlipidemia. He presented with complaints of chest pain off and on over the last week. He describes a mid sternal achiness that is non radiating and without associated symptoms. He denies any increasing or relieving factors including exertion. He reports dyspnea on exertion just with a flight of stairs that has been going on recently. He denies congestive symptoms, palpitations, lightheadedness or syncope. Past Medical History hypertension, hyperlipidemia, anxiety, gout Past Surgical History n/a Family History significant for premature coronary disease Social History + smoker, + daily ETOH, denies illicit drugs Current Medications Home cardiac meds: bystolic 10 mg daily tribenzor 08/15/40 daily atorvastatin 40mg daily Current Medications Aspirin 325 mg 325 mg 1X ONCE PO Last administered on 01/01/17 19:49; Start 01/01/17 at 19:15; Stop 01/01/17 at 19:16; Status DC Lactated Ringer's (Iv Lactated Ringers) 1,000 ml @ 1,000 mls/hr Q1H IV Last administered on 01/01/17 19:48; Start 01/01/17 at 19:00 Nitroglycerin (Nitro-Bid Oint) 1 inch 1X ONCE TP Last administered on 19:50; Start 01/01/17 at 19:30; Stop 01/01/17 at 19:31; Status DC Enoxaparin Sodium (Lovenox 100mg Syringe) 100 mg 1X ONCE SQ Last administered on 01/01/17 19:48; Start 01/01/17 at 19:30; Stop 01/01/17 at 19:31; Status DC Ondansetron HCl (Zofran) 8 mg 1X ONCE IV ; Start 01/01/17 at 20:45; Stop at 20:45; Status DC Clonidine HCl (Catapres) 0.2 mg 1X ONCE PO Last administered on 01/01/17 20: 30; Start 01/01/17 at 20:45; Stop 01/01/17 at 20:46; Status DC Ondansetron HCl (Zofran) 8 mg 1X ONCE IV Last administered on 01/01/17 20:30 ; Start 01/01/17 at 20:45; Stop 01/01/17 at 20:46; Status DC Phenylephrine HCl (Telly-Synephrine 1% Nasal) 2 drop 1X ONCE NS ; Start 01/01/17 at 20:45; Stop 01/01/17 at 20:46; Status DC Benzocaine (Hurricaine One) 1 spray 1X ONCE MM ; Start 01/01/17 at 20:45; Stop 01/01/17 at 20:46; Status DC Morphine Sulfate (Morphine 10mg Syringe) 10 mg 1X ONCE SQ ; Start 01/01/17 at 21:45; Stop 01/01/17 at 21:46; Status DC Ondansetron HCl (Zofran) 4 mg PRN Q4HRS PRN IV NAUSEA/VOMITING; Start 01/01/17 at 21:30; Stop 01/02/17 at 21:29 Aspirin (Children'S Aspirin) 81 mg DAILY PO Last administered on 01/02/17 07: 50; Start 01/02/17 at 09:00 Lorazepam (Ativan) 2 mg PRN 1X PRN IV SEIZURE OR ALCOHOL WITHDRAWAL; Start at 21:30 Lorazepam 2 mg 2 mg QID PO Last administered on 01/02/17 07:51; Start at 23:45 Multivitamins/ Minerals/Folic Acid/Thiamine HCl/ Dextrose/Lactated Ringer's ( Infuvite Adult/ Iv D5%-Lr) 1,011.2 ml @ 0 mls/hr DAILY IV Last administered on 01/01/17 22:00; Start 01/01/17 at 22:00 Morphine Sulfate (Morphine 10mg Syringe) 10 mg 1X ONCE SQ Last administered on 01/02/17 00:50; Start 01/01/17 at 22:15; Stop 01/01/17 at 22:16; Status DC Info (FLU VACCINE per PROTOCOL) 1 ea PRN 1X PRN MC PER PROTOCOL; Start at 09:00; Status UNV Influenza Virus Vaccine Quadrival (Fluarix Quad [id number] Syringe) 0.5 ml ONCE ONCE VAX IM ; Start 01/02/17 at 09:00; Stop 01/02/17 at 09:01; Status DC Active Scripts Active Reported Tribenzor 40-10-25 Mg Tablet (Olmesartan/Amlodipin/Hcthiazid) 1 Each Tablet 1 Tab PO DAILY Allergies: Coded Allergies: No Known Drug Allergies (Unverified , 01/01/17) Review of System as per HPI or negative General: Alert, Oriented X3, Cooperative, No acute distress HEENT: Atraumatic, EOMI, Mucous membr. moist/pink Lungs: Clear to auscultation, Normal air movement Heart: Regular rate, Normal S1, Normal S2, Other (no gallops, clicks or rubs) Abdomen: Normal bowel sounds, Soft, No tenderness Extremities: No cyanosis, No edema, Normal pulses Neuro: Normal speech, Strength at 5/5 X4 ext Psych/Mental Status: Mental status NL, Mood NL VITALS Vital Signs Date Time Temp Pulse Resp B/P Pulse Ox O2 Delivery O2 Flow Rate FiO2 01/02/17 08:14 Room Air 01/02/17 08:12 98.5 58 20 144/81 97 Labs Laboratory Tests Test 01/01/17 18:10 01/01/17 18:40 01/02/17 02:30 01/02/17 05:35 White Blood Count 9.1x10^3/uL (4.0-11.0) 7.3x10^3/uL (4.0-11.0) Red Blood Count 5.48x10^6/uL (4.30-5.70) 4.84x10^6/uL (4.30-5.70) Hemoglobin 17.0g/dL (13.0-17.5) 14.9g/dL (13.0-17.5) Hematocrit 49.2% (39.0-53.0) 44.0% (39.0-53.0) Mean Corpuscular Volume 90fL (79-100) 91fL (79-100) Mean Corpuscular Hemoglobin 31pg (25-35) 31pg (25-35) Mean Corpuscular Hemoglobin Concent 35g/dL (31-37) 34g/dL (31-37) Red Cell Distribution Width 13.4% (11.5-14.5) 13.7% (11.5-14.5) Platelet Count 167x10^3/uL (140-400) 155x10^3/uL (140-400) Neutrophils (%) (Auto) 67% (31-73) 50% (31-73) Lymphocytes (%) (Auto) 24% (24-48) 38% (24-48) Monocytes (%) (Auto) 8% (0-9) 10% (0-9) Eosinophils (%) (Auto) 1% (0-3) 2% (0-3) Basophils (%) (Auto) 1% (0-3) 1% (0-3) Neutrophils # (Auto) 6.1x10^3uL (1.8-7.7) 3.6x10^3uL (1.8-7.7) Lymphocytes # (Auto) 2.2x10^3/uL (1.0-4.8) 2.8x10^3/uL (1.0-4.8) Monocytes # (Auto) 0.7x10^3/uL (0.0-1.1) 0.7x10^3/uL (0.0-1.1) Eosinophils # (Auto) 0.0x10^3/uL (0.0-0.7) 0.1x10^3/uL (0.0-0.7) Basophils # (Auto) 0.1x10^3/uL (0.0-0.2) 0.1x10^3/uL (0.0-0.2) Prothrombin Time 10.1SEC (9.4-11.4) Prothromb Time International Ratio 1.0 (0.9-1.1) Activated Partial Thromboplast Time 26SEC (23-33) D-Dimer (Nilsa) 0.45mg/L (0.00-0.50) Urine Collection Type Unknown Urine Color Straw Urine Clarity Clear Urine pH 6.5 Urine Specific [place] 1.010 Urine Protein Neg (NEG-TRACE) Urine Glucose (UA) Negmg/dL (NEG) Urine Ketones (Stick) Negmg/dL (NEG) Urine Blood Neg (NEG) Urine Nitrite Neg (NEG) Urine Bilirubin Neg (NEG) Urine Urobilinogen Dipstick 0.2mg/dL (0.2 mg/dL) Urine Leukocyte Esterase Neg (NEG) Urine RBC 0/HPF (0-2) Urine WBC 0/HPF (0-4) Urine Squamous Epithelial Cells None/LPF Urine Bacteria 0/HPF (0-FEW) Sodium Level 139mmol/L (136-145) 141mmol/L (136-145) Potassium Level 3.6mmol/L (3.5-5.1) 3.8mmol/L (3.5-5.1) Chloride Level 99mmol/L (98-107) 104mmol/L (98-107) Carbon Dioxide Level 32mmol/L (21-32) 32mmol/L (21-32) Anion Gap 8 (6-14) 5 (6-14) Blood Urea Nitrogen 10mg/dL (8-26) 11mg/dL (8-26) Creatinine 1.0mg/dL (0.7-1.3) 1.1mg/dL (0.7-1.3) Estimated GFR (Cockcroft-Gault) 80.4 72.1 Glucose Level 119mg/dL (70-99) 101mg/dL (70-99) Calcium Level 9.4mg/dL (8.5-10.1) 8.5mg/dL (8.5-10.1) Magnesium Level 2.1mg/dL (1.8-2.4) Total Bilirubin 0.7mg/dL (0.2-1.0) 0.3mg/dL (0.2-1.0) Direct Bilirubin 0.2mg/dL (0.0-0.2) Aspartate Amino Transf (AST/SGOT) 27U/L (15-37) 19U/L (15-37) Alanine Aminotransferase (ALT/SGPT) 67U/L (16-63) 54U/L (16-63) Alkaline Phosphatase 90U/L (46-116) 77U/L (46-116) Creatine Kinase 222U/L (39-308) Creatine Kinase MB (Mass) 1.6ng/mL (0.0-3.6) Creatine Kinase MB Relative Index 0.7% (0-4) Troponin I Quantitative < 0.017ng/mL (0-0.055) < 0.017ng/mL (0-0.055) AY-Dnf-O-Type Natriuretic Peptide 181pg/mL (0-124) Total Protein 8.1g/dL (6.4-8.2) 6.8g/dL (6.4-8.2) Albumin 4.4g/dL (3.4-5.0) 3.5g/dL (3.4-5.0) Lipase 157U/L (73-393) Urine Opiates Screen Neg (NEG) Urine Methadone Screen Neg (NEG) Urine Barbiturates Neg (NEG) Urine Phencyclidine Screen Neg (NEG) Urine Amphetamine/Methamphetamine Neg (NEG) Urine Benzodiazepines Screen Neg (NEG) Urine Cocaine Screen Neg (NEG) Urine Cannabinoids Screen Neg (NEG) Urine Ethyl Alcohol Neg (NEG) Ethyl Alcohol Level < 10mg/dL (0-10) BUN/Creatinine Ratio 10 (6-20) Albumin/Globulin Ratio 1.1 (1.0-1.7) Images CXR - Impression: No acute thoracic findings. EKG with leftward axis, non specific st/t abnormalities. Assessment/Plan Chest pain - SD ruled out abnormal EKG - no acute ischemic changes Hypertension - uncontrolled. on multiple meds outpatient. consider renal arterial duplex as outpatient. check echo. Hyperlipidemia family history of premature coronary disease MPI today. check lipids. Start aspirin, continue statin and beta jhon. Resume home antihypertensives. Problems: RO ROONEY MD 01/02/17 1426: CONSULT Allergies: Coded Allergies: No Known Drug Allergies (Unverified , 01/01/17) Assessment/Plan Pt. seen and examined. Agree with above SPECIAL EFFECTS ARTIST note. 46 y.o male presenting with hypertensive urgency. Atypical angina/dyspnea. Normal cardiac exam labs/ekg/echo unremarkable Await MPI study, if negative ok to dc. BP better controlled. Problems: NILE STRICKLAND APRN Jan 02, 2017 09:41 RO ROONEY MD Jan 02, 2017 14:26
--- NOTE | 2017-01-02 10:48 | EKG ---
[address] [address] Test Date: 2017-01-01 Test Time: 18:32:27 Pat Name: JEANNIE VERGARA Department: Room: Gender: M School Director: : 1970 Requested By: ESTUARDO GARCIA Order Number: [id number] Reading MD: Measurements Intervals [place] Rate: 69 P: 29 NE: 150 QRS: -28 QRSD: 82 T: 130 QT: 412 QTc: 443 Interpretive Statements SINUS RHYTHM LEFT ATRIAL ABNORMALITY LEFTWARD AXIS CONSIDER LEFT VENTRICULAR HYPERTROPHY QRS(T) CONTOUR ABNORMALITY CONSIDER ANTEROLATERAL MYOCARDIAL DAMAGE ABNORMAL ECG RI6.01 Unconfirmed report No previous ECG available for comparison
[2017-01-02] MEDS ORDERED: REGADENOSON 0.4 MG/5 ML DISP.SYRIN. IV ONE (11:15)
[2017-01-02] MEDS: HYDROCHLOROTHIAZIDE 25 MG TABLET PO SCH (11:56)
[2017-01-02] MEDS: LOSARTAN 50 MG TABLET. PO SCH (11:57)
[2017-01-02] MEDS: AMLODIPINE BESYLATE 10 MG TABLET PO SCH (11:58)
--- NOTE | 2017-01-02 13:34 | CARD ---
APPROVED REPORT EXAM: Two-dimensional and M-mode echocardiogram with Doppler and color Doppler. Other Information Quality : GoodHR: 64bpm Rhythm : NSR INDICATION Chest Pain Resistant hypertension 2D DIMENSIONS RVDd3.3 (2.9-3.5cm)IVSd1.2 (0.7-1.1cm) Aortic Root(2D)2.1 (2.0-3.7cm)LVDd5.2 (3.9-5.9cm) PWd1.2 (0.7-1.1cm)LVDs3.4 (2.5-4.0cm) FS (%) 35.3 %SV83.2 ml LVEF(%)64.3 (>50%) Aortic Valve AoV Peak Elijah.153.2cm/sAoV VTI32.7cm AO Peak GR.9.4mmHgAO Mean GR.4mmHg MARIANELA (VTI)3.51cm2 Mitral Valve MV E Zjwkgtxw25.7cm/sMV E Peak Gr.3mmHg MV DECEL [id number] A Ulvfzthu28.5cm/s MV E Mean Gr.1mmHgE/A Ratio1.5 MV A [id number] LEFT VENTRICLE The left ventricle is normal size. There is mild concentric left ventricular hypertrophy. The left ve ntricular systolic function is normal and the ejection fraction is within normal range. The Ejection Fraction is 60-65%. There is normal LV segmental wall motion. The left ventricular diastolic function and filling is normal for age. RIGHT VENTRICLE The right ventricle is normal size. There is normal right ventricular wall thickness. The right ventr icular systolic function is normal. ATRIA The left atrium size is normal. The right atrium size is normal. The interatrial septum is intact wit h no evidence for an atrial septal defect or patent foramen ovale as noted on 2-D or Doppler imaging. AORTIC VALVE The aortic valve is normal in structure and function. Doppler and Color Flow revealed no significant aortic regurgitation. There is no significant aortic valvular stenosis. MITRAL VALVE The mitral valve is normal in structure and function. There is no evidence of mitral valve prolapse. There is no mitral valve stenosis. Doppler and Color Flow revealed no mitral valve regurgitation note d. TRICUSPID VALVE The tricuspid valve is normal in structure and function. Doppler and Color Flow revealed no tricuspid valve regurgitation noted. There is no tricuspid valve stenosis. PULMONIC VALVE Doppler and Color Flow revealed no pulmonic valvular regurgitation. There is no pulmonic valvular melany nosis. GREAT VESSELS The aortic root is normal in size. The ascending aorta is normal in size. The IVC is normal in size a nd collapses >50% with inspiration. PERICARDIAL EFFUSION There is no evidence of significant pericardial effusion. Critical Notification Critical Value: No <Conclusion> The left ventricular systolic function is normal and the ejection fraction is within normal range. Th e Ejection Fraction is 60-65%. There is normal LV segmental wall motion. There is mild concentric left ventricular hypertrophy. No significant valvular disease.
[2017-01-02 14:45] LABS: THYROID STIM HORMONE (TSH) 3.197 uIU/mL (0.358-3.740)
[2017-01-02] MEDS ORDERED: NEBI10TA3 PO (16:19)
[2017-01-02] MEDS ORDERED: ATOR40TA59 PO (16:24)
[2017-01-02] MEDS ORDERED: METOPROLOL TART IMMED RELEASE 50 MG TABLET ONE (16:59)
--- NOTE | 2017-01-02 17:41 | RAD ---
APPROVED REPORT Test Type: Pharmacological Stress Nurse/Tech: RT Rylee (Yudith) (N) Test Indications: CHEST PAIN Cardiac History: NONE Medications: SEE EHR Medical History: SEE EHR Resting ECG: SINUS RHYTHM, NONSPECIFIC T ABNORMALITIES Resting Heart Rate: 59 bpm Resting Blood Pressure: 157/71mmHg Pretest Chest Pain: None Nurse/Tech Notes Consent: The procedure was explained to the patient in lay terms. Informed consent was witnessed. Juan C eout was entered into [employer] History and Stress Test performed by RT Rylee (R) (N) Pharm. Details Pharmacologic stress testing was performed using 0.4mg per 5ml of regadenoson given intravenously ove r 7-10 seconds. POST EXERCISE Reason for Termination: Infusion complete Max HR: 84 bpm Max Blood Pressure: 157/71mmHg INTERPRETATION Stress EKG Conclusion: PATIENT HAD SHORTNESS OF BREATH AND CHEST PAIN DURING LEXISCAN INFUSION. NO SI GNIFICANT CHANGES. Imaging Protocol IMAGE PROTOCOL: Rest Tc-99m/stress Tc-99m 1 day Rest: Stress: Viability: Radiopharm.Tc99m EvcxumicyKf42c Sestamibi Kcei94vIs 34mCi Duration 20min. 15min. Img Date 01/02/2017 01/02/2017 Inj-Img Gezm32mqa. 60min. Rest Admin Site:IV - Right AntecubitalAdministrator: RT Rylee (R)(N) Stress Admin Site: IV - Right AntecubitalAdministrator: RT Rylee (R)(N) STRESS DATA End Diast. Vol.186.0mlAv. Heart Rate71.0bpm LVEDV index BSA3.0mlCardiac Output0.1L/min End Syst. Vol.84.0mlCO Index BSA7.3L/min LVESV index BSA1.0mlMyocardial Cixg849.0g Eject. Uvpdtaxb50.0% Stress Rates Pk. Fill Rate2.24EDV/secLVtime Pk. Fill 148.20msec Pk. Empty Rate3.18ESV/secLVtime Pk. Koald879.68msec 10/24 Pk. Fill1.18EDV/sec Stress Scores Regional WT3.00Summed WT28.00 Regional WM0.00Summed WM8.00 LV Perfusion There is a small sized, moderate to severe in intensity almost completely reversible perfusion defect in the apex. This may be related to apical thinning (normal variant) versus small perfusion defect. Wall Motion Normal wall motion. EF 55% LV Perf. Quant 17 Seg. SSS1.00 17 Seg. SRS0.00 17 Seg. SDS1.00 Stress Defect Extent (% LAD)5.00Rest Defect Extent (% LAD)3.10Rev. Defect Extent (% LAD)0.60 Stress Defect Extent (% LCX) 0.00Rest Defect Extent (% LCX)7.50Rev. Defect Extent (% LCX)0.00 Stress Defect Extent (% RCA)0.00Rest Defect Extent (% RCA)0.00Rev. Defect Extent (% RCA)0.00 Stress Defect Extent (% ARIK)5.00Rest Defect Extent (% ARIK)4.80Rev. Defect Extent (% ARIK)1.50 Other Information Quality:Good Overall Exercise Capacity: Poor Risk Assessment: Low-Moderate Risk Conclusion 1. No evidence of vasodilator induced EKG changes. 2. Small apical defect as noted above. 3. Low normal EF at 55% 4. Low to moderate risk study. Recommendations Consider coronary angiography (outpt or inpatient) based on symptoms versus continued risk factor mod ification.
--- NOTE | 2017-01-02 18:34 | HP ---
ADMIT DATE: 01/02/2017 HISTORY OF PRESENT ILLNESS: The patient is a 46-year-old male patient who came to the Emergency Room complaining of chest pain and discomfort that started last week, on and off, yesterday it was constant. He apparently has multiple risk factors for coronary artery disease and therefore was admitted to rule out myocardial infarction. His first set of cardiac enzymes showed troponin to be 0.017. His EKG showed leftward axis, nonspecific ST-T changes and was basically admitted to do more sets of cardiac enzyme, check his fasting lipid profile and consult the cardiology team. PAST MEDICAL HISTORY: Significant for hypertension, hyperlipidemia, irritable bowel syndrome. PAST SURGICAL HISTORY: Significant for esophagogastroduodenoscopy and colonoscopy. ALLERGIES: He has no known drug allergies. MEDICATIONS: He is currently on following medications: He is on atorvastatin calcium 40 mg at bedtime, nebivolol 10 mg at bedtime. He is also on Tribenzor 40/10/25 mg tablet of olmesartan, amlodipine and hydrochlorothiazide once a day. FAMILY HISTORY: He has 3 sisters and 3 brothers, all younger and healthy. His father is alive at the age of 62, has had myocardial infarction and underwent coronary artery bypass graft surgery. His mother is alive in her 60s and has hypertension. SOCIAL HISTORY: He is , has 2 sons and 2 daughters. An ex-smoker, still drinks alcohol occasionally. He does not use any drugs. He is a computer project manager. REVIEW OF SYSTEMS: The patient denied any blurring of vision, cataract, glaucoma or macular degeneration. Denied any earache, tinnitus or sensorineural deafness. Denied any nosebleeds, stuffy nose or postnasal drip. Denied any sore throat, sore tongue, toothache, hoarseness of voice or difficulty swallowing. He did complain of nausea, vomiting and diarrhea, but denied any constipation. Denied any hematemesis, melena or hematochezia. Denied any dysuria, frequency or hematuria. He did also complain of chest pain, but no shortness of breath. No diaphoresis, no radiation. PHYSICAL EXAMINATION: GENERAL: On arrival to the Emergency Room, he apparently was hypertensive, but there was no pallor, jaundice or cyanosis. No lymphadenopathy, no thyromegaly. No jugular venous distension. No lower limb edema. VITAL SIGNS: His heart rate was 71, blood pressure was 190/100, temperature was 99, respiratory rate was 18 and oxygen saturation was 93% on room air. HEENT: Normocephalic, atraumatic. NECK: Supple. HEART: Showed normal first and second heart sounds with no gallop, rub or murmur. CHEST: Clear to auscultation. No crepitation or rhonchi. ABDOMEN: Distended, soft, nontender. No guarding or rigidity. No organomegaly. Hernial orifices intact. Bowel sounds normal. NEUROLOGIC: He was awake, alert, responding appropriately. Cranial nerves intact. He ambulates without assistance or assistive devices. LABORATORY DATA: Showed a white cell count of 9100, hemoglobin 17, hematocrit 49, MCV 90 and platelet count 267,000. His chemistry showed a serum sodium of 139, potassium 3.6, chloride 99, bicarbonate 32, anion gap of 8, BUN 10, creatinine 1, estimated GFR was 80 mL per minute. His glucose was 119. Calcium was 9.4, magnesium 2.1. Total bilirubin, AST, ALT, alkaline phosphatase were normal. His total protein was 8.1, albumin was 4.4 and lipase was 157. His prothrombin time was 10.1, INR 1, aPTT was 26 and D-dimer was 0.45. Urinalysis was essentially unremarkable. Toxic screen was essentially negative. His chest x-ray showed that he has no acute thoracic changes. ASSESSMENT AND PLAN: The patient was admitted to do more 2 sets of cardiac enzymes, arrange for an echocardiogram and consult the factory clerk and decide on further management accordingly. GIOVANY RASHEED MD DR: KATHIE/ezra JOB#: [id number] / [id number]
[2017-01-02] MEDS ORDERED: MORPHINE SULFATE 2 MG/ML DISP.SYRIN. IV ONE (20:30)
[2017-01-02] MEDS: METOPROLOL TART IMMED RELEASE 50 MG TABLET PO SCH (21:00)
[2017-01-02] MEDS ORDERED: ATORVASTATIN CALCIUM 20 MG TABLET PO SCH ×2 (21:00)
[2017-01-02 22:07] LABS: HCV ANTIBODY <0.1 s/co ratio (0.0-0.9); HEP A IGM ABDY Negative (Negative)
--- NOTE | 2017-01-02 22:36 | NUR ---
Pt resting in bed at this time, denies complaints. Stated he was having substernal pain on and off, MS x1 given with relief. Will continue to monitor VS and status. Pt was able to verbalize POC, will be transfering to [facility] in AM for cardiac cath. Will continue to monitor.
--- NOTE | 2017-01-02 22:39 | PN ---
DATE: 01/02/2017 SUBJECTIVE: The patient is resting slightly propped up in bed, no apparent distress, has had 2 sets of cardiac enzymes that ruled out myocardial infarction. He was seen by the Cardiology team, has had an echocardiogram done, which basically showed that the left ventricular systolic function is normal and ejection fraction is within normal range. The ejection fraction is 60-65%. He has normal left ventricular segmental wall motion, mild concentric left ventricular hypertrophy. No significant valvular disease. His fasting lipid profile showed that his triglycerides was 283, total cholesterol was high at 267, LDL cholesterol was high at 157, VLDL was 56, and HDL cholesterol was 54 and the ratio was 4. TSH was 3.197. The patient has had nuclear stress test, which basically showed that there is no evidence of vasodilator induced EKG changes, a small apical defect as noted and low normal ejection fraction of 55%, low to moderate risk study. Cardiology recommended coronary angiography. PLAN: The plan is for the patient to stay overnight and tomorrow morning for him to go to lab scientist at [facility]. GIOVANY RASHEED MD DR: KATHIE/ezra JOB#: [id number] / [id number]
[2017-01-03 05:44] VITALS: BP 132/70
--- NOTE | 2017-01-03 07:43 | NUR ---
Ems called for 8am chart picker. PT to be in medical lab director at 9. PT is able to verbalize understanding of transfer. PT pain free will continue to monitor. Wil ALTAMIRANO
[2017-01-03] MEDS ORDERED: ASPIRIN ENTERIC COATED 325 MG TABLET.DR. PO ONE (07:53)
[2017-01-03] MEDS: LORAZEPAM 1 MG TABLET. PO SCH (07:55)
[2017-01-03] MEDS: LOSARTAN 50 MG TABLET. PO SCH (07:55)
[2017-01-03] MEDS: AMLODIPINE BESYLATE 10 MG TABLET PO SCH (07:56)
[2017-01-03] MEDS: METOPROLOL TART IMMED RELEASE 50 MG TABLET PO SCH (07:56)
[2017-01-03] MEDS: HYDROCHLOROTHIAZIDE 25 MG TABLET PO SCH (07:57)
[2017-01-03] MEDS ORDERED: ASPIRIN 325 MG TABLET PO ONE (08:00)
--- NOTE | 2017-01-03 08:34 | NUR ---
PT given all meds per [facility] request as well as asa 325mg. EMS verbalized understanding of transfer to [facility] brick and blocker aid labor. PT left via Cart with belongings. Ginna ALTAMIRANO
[2017-01-03] MEDS ORDERED: OLMESARTAN PO SCH (09:00)
[2017-01-03] MEDS ORDERED: [UNRECOGNIZED DRUG - OTHER] PO SCH (09:00)
[2017-01-03] MEDS ORDERED: AMLODIPIN PO SCH (09:00)
[2017-01-03] MEDS ORDERED: HCTHIAZID PO SCH (09:00)
[2017-01-03] MEDS ORDERED: NON FORMULARY ITEM (Nebivolol Hcl (Bystolic) 1 TAB) PO SCH (09:00)
[2017-01-03] MEDS ORDERED: LOSARTAN 50 MG TABLET. PO SCH (10:30)
[2017-01-03] MEDS ORDERED: AMLODIPINE BESYLATE 10 MG TABLET PO SCH (10:30)
[2017-01-03] MEDS ORDERED: HYDROCHLOROTHIAZIDE 25 MG TABLET PO SCH (10:30)
== END 2017-01-03 08:10 | disposition short-term general hospital (02) | DRG 305 ==
LOC: ER 18:20 → ICU 21:34
PROVIDERS: ADMIT Internal Medicine; ATTEND Internal Medicine
DX: I16.0 Hypertensive urgency (principal); E78.5 Hyperlipidemia, unspecified; I20.9 Angina pectoris, unspecified; F41.9 Anxiety disorder, unspecified; F17.210 Nicotine dependence, cigarettes, uncomplicated; R07.89 Other chest pain; K58.9 Irritable bowel syndrome, unspecified; M10.9 Gout, unspecified; Z82.49 Family history of ischemic heart disease and other diseases of the circulatory system; Z79.899 Other long term (current) drug therapy; Z79.82 Long term (current) use of aspirin
CPT/HCPCS: 36415; 71020; 78452; 80048; 80053; 80061; 80074; 80076; 81001; 82553; 83690; 83735; 83880; 84443; 84484; 85027; 85379; 85610; 85730; 87641; 90686; 93005; 93017; 93306; 96372; 96374; 96375; 96376; A9500; G0480; G0481; J1650; J2270; J2405; J2785; J7120; 99285-25

== ENCOUNTER → 2018-07-03 | Outpatient (CLI) | payer OTHER ==
[~2018-07-03] MED LIST: ATOR40TA59 PO; NEBI10TA3 PO; OLME1TAB35 PO
--- NOTE | 2018-07-03 13:01 | RAD ---
MR#: [id number] Date of Study: 07/03/2018 Ordering Physician: RO ROONEY, Referring Physician: MARISELA QURESHI Tech: VIANCA Terrell ARRT (R) (N) APPROVED REPORT Test Type: Exercise Stress Nurse/Tech: ELISEO Morris/Susie Suazo [facility] Test Indications: CORONARY ARTERY ANOMALY Cardiac History: Hypertension, Family history Medications: See Electronic Medical Record Medical History: See Electronic Medical Record Resting ECG: SR, NS ST/T ABN. Resting Heart Rate: 59 bpm Resting Blood Pressure: 141/77mmHg Pretest Chest Pain: None Nurse/Tech Notes Consent: The procedure was explained to the patient in lay terms. Informed consent was witnessed. Juan C eout was entered into [email or web address] History and Stress Test performed by VIANCA Terrell ARRT (R) (N) Stress Symptoms NO CP, MILD SOB @ [employer] EXERCISE Reason for Termination: Reached target heart rate Target HR: Yes Max HR: 149 bpm 87% of Maximum Predicted HR: 172 bpm Exercise duration: 12 min:sec, 4 Stage Exercise capacity: 13.4METs Max Blood Pressure: 177/73mmHg Blood Pressure response to exercise: Normal blood pressure response during stress. Chest Pain: No. INTERPRETATION Stress EKG Conclusion: The resting EKG shows a normal sinus rhythm with nonspecific ST-T wave changes . The stress EKG shows no significant changes from baseline. No EKG evidence of stressed induced ischemia. Imaging Protocol IMAGE PROTOCOL: Rest Tc-99m/stress Tc-99m 1 day Rest: Stress: Viability: Radiopharm.Tc99m IzdfrpzduTf30j Sestamibi [place]34pHp 35mCi Img Date 07/03/2018 07/03/2018 Inj-Img [id number]. 60min. Rest Admin Site:IV - Left AntecubitalAdministrator: VIANCA Terrell ARRT (R)(N) Stress Admin Site: IV - Left AntecubitalAdministrator: VIANCA Terrell ARRT (Yudith)(N) STRESS DATA End Diast. Vol.177.0mlAv. Heart Rate78.0bpm LVEDV index BSA2.0mlCardiac Output0.1L/min End Syst. Vol.57.0mlCO Index BSA9.3L/min LVESV index BSA1.0mlMyocardial Qeat466.0g Eject. Vqimxxew91.0% Stress Rates Pk. Fill Rate2.92EDV/secLVtime Pk. Fill 134.01msec Pk. Empty Rate3.97ESV/secLVtime Pk. Arnwu250.96msec 1/3 Pk. Fill1.50EDV/sec Stress Scores Regional WT2.00Summed WT16.00 Regional WM0.00Summed WM1.00 LV Perfusion The stress scans show no significant defects. The rest scans show no significant defects. Nuclear imaging shows no reversible ischemia. There is mild fixed apical thinning most suggestive of a technical artifact with normal LV function. Wall Motion Left ventricular systolic function is normal with no regional wall motion abnormalities and ejection fraction of 68%. LV Perf. Quant 17 Seg. SSS2.00 17 Seg. SRS1.00 17 Seg. SDS2.00 Stress Defect Extent (% LAD)0.00Rest Defect Extent (% LAD)3.10Rev. Defect Extent (% LAD)0.00 Stress Defect Extent (% LCX) 17.50Rest Defect Extent (% LCX)5.00Rev. Defect Extent (% LCX)11.30 Stress Defect Extent (% RCA)0.00Rest Defect Extent (% RCA)0.00Rev. Defect Extent (% RCA)0.00 Stress Defect Extent (% ARIK)3.00Rest Defect Extent (% ARIK)3.30Rev. Defect Extent (% ARIK)2.00 Conclusion 1. Excellent exercise capacity with the patient walking on a Patrice protocol for 12 minutes with no re ported chest pain. 2. No EKG evidence of stressed induced ischemia. 3. Nuclear imaging shows no reversible defects. 4. Nuclear imaging has mild fixed apical thinning which is most consistent with a technical artifact . 5. Normal LV systolic function is normal with no regional wall motion abnormalities and an ejection f raction of 68%. 6. Low risk treadmill nuclear stress test. Signed by : Roderick Seth MD Electronically Approved : 07/03/2018 13:00:52
== END | disposition home or self-care (01) ==
LOC: NM 08:04
PROVIDERS: ATTEND Internal Medicine Cardiovascular Disease
DX: Q24.5 Malformation of coronary vessels (principal); F17.210 Nicotine dependence, cigarettes, uncomplicated; Z82.49 Family history of ischemic heart disease and other diseases of the circulatory system
CPT/HCPCS: 78452; 93017; 96374; 96376; A9500